=== PATIENT | female | born 1990 | race African-American/Black ===

== ENCOUNTER 2017-01-02 09:31 | Emergency (ER) | payer OTHER ==
[~2017-01-02] VITALS: Ht 182.9 cm; Wt 59.0 kg
[~2017-01-02 09:31] MED LIST: APAP500 PO; CIPRO500 MG PO; COLACE 100 MG100 MG PO; DERMOPLAST SPRA56 ML SPRAY; IBUPROFEN 800800 M1 PO; IRON325 PO; MOBIC15 MG PO; MULTIVITAMINS; NAPROSYN500 MG PO; NEXPLANON68 MG SQ; NOHOMEMEDICATIONS; PRENATAL TABLE1 EAC3 PO; TUCKS MEDICATE1 EAC2 TOP; ULTRAM 50MG TAB50 MG PO; ZOFRAN 4 MG ORAL4 MG PO
[2017-01-02 10:56] VITALS: BP 110/65
== END 2017-01-02 10:57 | disposition home or self-care (01) ==
LOC: ER 09:31
DX: S60.211A Contusion of right wrist, initial encounter (principal); Z87.891 Personal history of nicotine dependence; W01.0XXA Fall on same level from slipping, tripping and stumbling without subsequent striking against object, initial encounter; Y93.89 Activity, other specified; Y92.89 Other specified places as the place of occurrence of the external cause; Y99.9 Unspecified external cause status

== ENCOUNTER 2018-06-18 12:51 | Emergency (ER) | payer OTHER ==
[~2018-06-18] VITALS: Ht 185.4 cm; Wt 62.1 kg
[2018-06-18] MEDS ORDERED: NAPROSYN500 MG PO (13:21)
[2018-06-18 13:42] VITALS: BP 104/70
== END 2018-06-18 13:45 | disposition home or self-care (01) ==
LOC: ER 12:51
DX: G89.29 Other chronic pain (principal); M25.561 Pain in right knee; F17.210 Nicotine dependence, cigarettes, uncomplicated